=== PATIENT | male | born 1955 | race Caucasian/White ===

== ENCOUNTER → 2017-09-28 | Outpatient (CLI) | payer OTHER ==
--- NOTE | 2017-09-28 09:59 | RAD ---
Chest, 2 views, 09/28/2017: History: Cough Comparison is made to a study from 07/12/2015. The heart size and pulmonary vascularity are normal. No pulmonary infiltrates are seen. There is no evidence of pleural fluid. Mild scattered spurs are present in the spine. Postsurgical changes with instrumentation are evident in the lumbar spine. IMPRESSION: No acute cardiopulmonary abnormality is detected.
== END | disposition home or self-care (01) ==
LOC: PMG 07:50
PROVIDERS: ATTEND Physician Assistant Medical
DX: R05 Cough (principal); M46.00 Spinal enthesopathy, site unspecified; Z98.890 Other specified postprocedural states
CPT/HCPCS: 71046